=== PATIENT | male | born 1970 | race Two or more races ===

== ENCOUNTER 2023-09-14 08:48 | Emergency (ER) | payer MEDICARE, OTHER ==
[~2023-09-14] VITALS: Ht 170.2 cm; Wt 80.7 kg
[2023-09-14 10:49] VITALS: BP 139/97; PULSE 90; RESP 18; TEMP 98; O2SAT 97
[2023-09-14] MEDS ORDERED: LIDO5DIS21 TOP (12:07)
[2023-09-14] MEDS ORDERED: IBUP1TAB5 PO (12:07)
== END 2023-09-14 13:21 | disposition home or self-care (01) ==
LOC: ER 08:48
DX: M54.89 Other dorsalgia (principal); Z79.1 Long term (current) use of non-steroidal anti-inflammatories (NSAID); Y04.2XXA Assault by strike against or bumped into by another person, initial encounter; Y93.89 Activity, other specified; Y92.89 Other specified places as the place of occurrence of the external cause; Y99.8 Other external cause status
CPT/HCPCS: 72100